=== PATIENT | female | born 1995 | race Two or more races ===

== ENCOUNTER 2022-12-18 08:15 | Observation (INO) | payer MEDICAID | END 2022-12-18 11:31 | disposition home or self-care (01) | LOC: LDRP 08:15 → UNDOADMOB 08:15 → LDRP 08:36 → UNDODISOB 11:31 | PROVIDERS: ADMIT Obstetrics & Gynecology; ATTEND Obstetrics & Gynecology | DX: O24.419 Gestational diabetes mellitus in pregnancy, unspecified control (principal); Z3A.32 32 weeks gestation of pregnancy | CPT/HCPCS: 59025; 76818; 81002; 82948; 82962; 94760; G0378 ==

== ENCOUNTER 2022-12-24 09:00 | Observation (INO) | payer MEDICAID ==
[2022-12-24] MEDS ORDERED: PREN-96 PO (11:08)
[2022-12-24] MEDS ORDERED: METF-370 PO (11:11)
== END 2022-12-24 11:20 | disposition home or self-care (01) ==
LOC: LDRP 09:00 → UNDOADMOB 09:00 → LDRP 09:10 → UNDODISOB 11:20
PROVIDERS: ADMIT Obstetrics & Gynecology; ATTEND Obstetrics & Gynecology
DX: O24.419 Gestational diabetes mellitus in pregnancy, unspecified control (principal); Z3A.33 33 weeks gestation of pregnancy
CPT/HCPCS: 59025; 76818; 81002; 82948; 82962; G0378

== ENCOUNTER 2022-12-27 09:04 | Observation (INO) | payer MEDICAID ==
[~2022-12-27 09:04] MED LIST: METF-370 PO; PREN-96 PO
== END 2022-12-27 10:40 | disposition home or self-care (01) ==
LOC: LDRP 09:04
PROVIDERS: ADMIT Obstetrics & Gynecology; ATTEND Obstetrics & Gynecology
DX: O24.419 Gestational diabetes mellitus in pregnancy, unspecified control (principal); Z3A.33 33 weeks gestation of pregnancy
CPT/HCPCS: 59025; 76818; 81002; 82962; 94760; G0378

== ENCOUNTER 2022-12-29 09:04 | Observation (INO) | payer MEDICAID ==
[~2022-12-29] VITALS: Ht 160 cm; Wt 118.8 kg
== END 2022-12-29 12:03 | disposition home or self-care (01) ==
LOC: LDRP 09:04
PROVIDERS: ADMIT Obstetrics & Gynecology; ATTEND Obstetrics & Gynecology
DX: O24.419 Gestational diabetes mellitus in pregnancy, unspecified control (principal); Z3A.33 33 weeks gestation of pregnancy
CPT/HCPCS: 59025; 76818; 81002; 82948; 82962; 94760; G0378

== ENCOUNTER 2023-01-01 08:56 | Observation (INO) | payer MEDICAID ==
[~2023-01-01] VITALS: Ht 160 cm; Wt 119.3 kg
== END 2023-01-01 10:11 | disposition home or self-care (01) ==
LOC: LDRP 08:56
PROVIDERS: ADMIT Obstetrics & Gynecology; ATTEND Obstetrics & Gynecology
DX: O24.419 Gestational diabetes mellitus in pregnancy, unspecified control (principal); Z3A.33 33 weeks gestation of pregnancy
CPT/HCPCS: 59025; 76818; 81002; 82948; 82962; 94760; G0378

== ENCOUNTER 2023-01-05 08:14 | Observation (INO) | payer MEDICAID | END 2023-01-05 09:40 | disposition home or self-care (01) | LOC: LDRP 08:14 | PROVIDERS: ADMIT Obstetrics & Gynecology; ATTEND Obstetrics & Gynecology | DX: O24.419 Gestational diabetes mellitus in pregnancy, unspecified control (principal); Z3A.34 34 weeks gestation of pregnancy | CPT/HCPCS: 59025; 76818; 81002; 82948; 82962; G0378 ==

== ENCOUNTER → 2023-01-07 | Outpatient (CLI) | payer MEDICAID ==
[2023-01-07 11:15] LABS: Basophils # (auto) 0 10 ^3/uL (0-0.2); Basophils % (auto) 0.1 % (0.0-2.0); Eosinophils # (auto) 0.1 10 ^3/uL (0-0.8); Eosinophils % (auto) 0.7 % (0.0-7.0); Hemoglobin 11.6 g/dL (12.2-16.2); Lymphocytes # (auto) 1.5 10 ^3/uL (0.4-5.4); Lymphocytes % (auto) 16.4 % (10.0-50.0); Mean Corpuscular Hemoglobin 27.1 pg (28.0-32.0); Mean Corpuscular Hgb Conc. 33.1 g/dL (32.0-36.0); Mean Corpuscular Volume 81.9 fL (80.0-100.0); Monocytes # (auto) 0.3 10 ^3/uL (0-1.3); Monocytes % (auto) 3.2 % (0.0-12.0); Neutrophils # (auto) 7.5 10 ^3/uL (1.6-8.6); Neutrophils % (auto) 79.6 % (37.0-80.0); Red Blood Cells 4.28 10^6/uL (4.0-5.20); Red Cell Distribution Width 14.9 % (11.8-14.3); White Blood Cell 9.5 10^3/uL (4.4-10.8)
[2023-01-08 07:06] LABS: RPR Non Reactive (Non Reactive)
== END | disposition home or self-care (01) ==
LOC: LAB 10:25
PROVIDERS: ATTEND Obstetrics & Gynecology
DX: Z34.80 Encounter for supervision of other normal pregnancy, unspecified trimester (principal); Z3A.00 Weeks of gestation of pregnancy not specified
CPT/HCPCS: 36415; 84112; 85025; 86592

== ENCOUNTER 2023-01-12 12:26 | Observation (INO) | payer MEDICAID | END 2023-01-12 14:30 | disposition home or self-care (01) | LOC: UNDOADMOB 12:26 → LDRP 12:26 → UNDODISOB 14:30 | PROVIDERS: ADMIT Obstetrics & Gynecology; ATTEND Obstetrics & Gynecology | DX: O24.419 Gestational diabetes mellitus in pregnancy, unspecified control (principal); Z3A.35 35 weeks gestation of pregnancy | CPT/HCPCS: 59025; 76818; 81002; 82962; G0378 ==

== ENCOUNTER 2023-01-15 08:10 | Observation (INO) | payer MEDICAID ==
[2023-01-15] MEDS ORDERED: METF-370 PO (08:39)
== END 2023-01-15 10:40 | disposition home or self-care (01) ==
LOC: LDRP 08:10 → UNDOADMOB 08:10 → LDRP 08:29 → UNDODISOB 10:40
PROVIDERS: ADMIT Obstetrics & Gynecology; ATTEND Obstetrics & Gynecology
DX: O24.419 Gestational diabetes mellitus in pregnancy, unspecified control (principal); Z3A.36 36 weeks gestation of pregnancy
CPT/HCPCS: 59025; 76818; 81002; 82948; 82962; 94760; G0378

== ENCOUNTER 2023-01-19 12:04 | Observation (INO) | payer MEDICAID | END 2023-01-19 14:10 | disposition home or self-care (01) | LOC: LDRP 12:04 | PROVIDERS: ADMIT Obstetrics & Gynecology; ATTEND Obstetrics & Gynecology | DX: O24.419 Gestational diabetes mellitus in pregnancy, unspecified control (principal); Z3A.36 36 weeks gestation of pregnancy | CPT/HCPCS: 59025; 76818; 81002; 82948; 82962; G0378 ==

== ENCOUNTER 2023-01-26 09:10 | Observation (INO) | payer MEDICAID | END 2023-01-26 10:23 | disposition home or self-care (01) | LOC: UNDOADMOB 09:10 → LDRP 09:10 → UNDODISOB 10:23 | PROVIDERS: ADMIT Obstetrics & Gynecology; ATTEND Obstetrics & Gynecology | DX: O24.419 Gestational diabetes mellitus in pregnancy, unspecified control (principal); Z3A.37 37 weeks gestation of pregnancy | CPT/HCPCS: 59025; 76818; 81002; 82948; 82962; 94760; G0378 ==

== ENCOUNTER 2023-01-29 08:49 | Observation (INO) | payer MEDICAID ==
[2023-01-29] MEDS ORDERED: CEPH250C PO (10:30)
== END 2023-01-29 10:44 | disposition home or self-care (01) ==
LOC: LDRP 09:14 → UNDOADMOB 09:14 → LDRP 09:18 → UNDODISOB 10:44
PROVIDERS: ADMIT Obstetrics & Gynecology; ATTEND Obstetrics & Gynecology
DX: O24.419 Gestational diabetes mellitus in pregnancy, unspecified control (principal); Z3A.38 38 weeks gestation of pregnancy
CPT/HCPCS: 59025; 76818; 81002; 82948; 82962; G0378

== ENCOUNTER 2023-02-02 08:50 | Observation (INO) | payer MEDICAID ==
[~2023-02-02 08:50] MED LIST changes: +CEPH250C PO
== END 2023-02-02 11:43 | disposition home or self-care (01) ==
LOC: LDRP 08:50 → UNDOADMOB 08:50 → LDRP 09:02
PROVIDERS: ADMIT Obstetrics & Gynecology; ATTEND Obstetrics & Gynecology
DX: O24.415 Gestational diabetes mellitus in pregnancy, controlled by oral hypoglycemic drugs (principal); Z3A.38 38 weeks gestation of pregnancy; Z79.84 Long term (current) use of oral hypoglycemic drugs
CPT/HCPCS: 59025; 76818; 81002; 82948; 82962; G0378

== ENCOUNTER 2023-02-09 08:16 | Observation (INO) | payer MEDICAID | END 2023-02-09 10:27 | disposition home or self-care (01) | LOC: LDRP 08:29 → UNDOADMOB 08:29 → LDRP 08:36 → UNDODISOB 10:27 | PROVIDERS: ADMIT Obstetrics & Gynecology; ATTEND Obstetrics & Gynecology | DX: O24.419 Gestational diabetes mellitus in pregnancy, unspecified control (principal); Z3A.39 39 weeks gestation of pregnancy | CPT/HCPCS: 59025; 76818; 81002; 82948; 82962; G0378 ==

== ENCOUNTER 2023-02-10 12:57 | Inpatient (IN) | payer MEDICAID ==
[~2023-02-10] VITALS: Ht 160 cm; Wt 120.7 kg
[2023-02-10] MEDS ORDERED: LIDOCAINE 2%HCL (LOCAL ANESTH.) INJ 20ML MDV IJ PRN ×2 (13:30→15:00)
[2023-02-10] MEDS ORDERED: PROMETHAZINE HCL 25 MG/ML 1ML IV PRN (13:30)
[2023-02-10] MEDS ORDERED: PENICILLIN G POT 5MIL/D5 50ML 50 ML IV ONE (13:30)
[2023-02-10] MEDS ORDERED: PHISODERM TOP SOLN 240ML BTL TOP PRN (13:30)
[2023-02-10] MEDS: LACTATED RINGER'S 1,000 ML IV SCH ×2 (14:02→18:41)
[2023-02-10 14:50] LABS: Basophils # (auto) 0 10 ^3/uL (0-0.2); Basophils % (auto) 0.2 % (0.0-2.0); Eosinophils # (auto) 0.1 10 ^3/uL (0-0.8); Eosinophils % (auto) 0.6 % (0.0-7.0); Hematocrit 35.8 % (36.0-46.0); Hemoglobin 11.9 g/dL (12.2-16.2); Lymphocytes # (auto) 1.5 10 ^3/uL (0.4-5.4); Lymphocytes % (auto) 15.4 % (10.0-50.0); Mean Corpuscular Hgb Conc. 33.2 g/dL (32.0-36.0); Mean Corpuscular Volume 81.5 fL (80.0-100.0); Monocytes # (auto) 0.3 10 ^3/uL (0-1.3); Monocytes % (auto) 3.1 % (0.0-12.0); Neutrophils # (auto) 8.1 10 ^3/uL (1.6-8.6); Neutrophils % (auto) 80.7 % (37.0-80.0); Nucleated Red Blood Cells % 0.2 %; Red Blood Cells 4.39 10^6/uL (4.0-5.20); Red Cell Distribution Width 14.8 % (11.8-14.3)
[2023-02-10 14:52] LABS: Alanine Aminotransferase 60 U/L (7-40); Albumin 3.6 g/dL (3.2-4.8); Alkaline Phosphatase 275 U/L (46-116); Anion Gap 8.2 (5-15); Aspartate Aminotransferase 23 U/L (13-40); Blood Urea Nitrogen 13 mg/dL (9-23); Calcium 9.3 mg/dL (8.5-10.1); Carbon Dioxide 21.8 mmol/L (20-30); Chloride 108 mmol/L (98-107); Glucose 95 mg/dL (74-106); Potassium 4.2 mmol/L (3.5-5.1); Sodium 138 mmol/L (136-145)
[2023-02-10] MEDS: DERMOPLAST 60ML BOTTLE TOP PRN (14:52)
[2023-02-10] MEDS: WITCH HAZEL-GLYCERIN PAD TOP PRN (14:52)
[2023-02-10 14:53] LABS: Bilirubin, Total 0.4 mg/dL (0.2-1.0); Total Protein 5.8 g/dL (5.7-8.2)
[2023-02-10] MEDS: miSOPROStol 50 MCG per PRE-CUT 1/2 TAB PO PRN ×2 (15:08→20:36)
[2023-02-10 15:09] LABS: Amphetamine Screen, Urine Neg (NEGATIVE)
[2023-02-10 15:10] LABS: Benzodiazephine Screen, Urine Neg (NEGATIVE)
[2023-02-10 15:11] LABS: Barbiturate Scree,Urine Neg (NEGATIVE); Cannabinoid Screen, Urine Neg (NEGATIVE); Cocaine Screen, Urine Neg (NEGATIVE); Opiate Scree,Urine Neg (NEGATIVE); Phencyclidine Screen, Urine Neg (NEGATIVE)
[2023-02-10 15:16] LABS: Urine Bacteria FEW /hpf (None Seen); Urine Blood Negative /uL (Negative); Urine Clarity Clear (Clear); Urine Color Yellow (Yellow); Urine Mucus FEW (None Seen); Urine Protein, UAD Negative (Negative); Urine Specific Gravity 1.017 (1.001-1.035); Urine Urobilinogen Normal (Negative); Urine WBC 2 /hpf (0 - 5)
[2023-02-10 15:47] LABS: INR 0.9 (0.9-1.15); Partial Thromboplastin Time 29.5 SEC (24.5-34.5); Prothrombin Time 9.5 sec (9.3-11.8)
[2023-02-10] MEDS ORDERED: ACETAMINOPHEN 500 MG TAB PO PRN (17:00)
[2023-02-10] MEDS ORDERED: ONDANSETRON HCL 4 MG/2 ML VIAL IV PRN ×2 (17:00→17:30)
[2023-02-10] MEDS ORDERED: MINERAL OIL TOPICAL 10ml TOP PRN (17:00)
[2023-02-10] MEDS ORDERED: diphenhdrAMINE HCL 50 MG/1 ML VL IV PRN (17:00)
[2023-02-10] MEDS ORDERED: TERBUTALINE SULFATE 1 MG/ML 1ML VIAL SC PRN (17:00)
[2023-02-10] MEDS ORDERED: TRANEXAMIC ACID 1,000 MG in SODIUM CHL 0.9% 100 ML IV PRN (17:00)
[2023-02-10] MEDS ORDERED: miSOPROStol 100 mcg TAB SL PRN ×2 (17:00→17:30)
[2023-02-10] MEDS ORDERED: LACT. RINGERS/OXYTOCIN 20UNITS 500 ML IV ONE ×4 (17:00→18:00)
[2023-02-10] MEDS ORDERED: CARBOPROST TROMETHAMINE 250 MCG/1ML VIAL IM PRN ×2 (17:00→17:30)
[2023-02-10] MEDS ORDERED: METHYLERGONOVINE MALEATE 0.2 MG/ML AMP IM PRN ×2 (17:00→17:30)
[2023-02-10] MEDS ORDERED: PROMETHAZINE HCL 25 MG/ML 1ML IM PRN (17:00)
[2023-02-10] MEDS ORDERED: fentaNYL CITRATE 100 MCG/2 ML VL IV PRN (17:00)
[2023-02-10] MEDS ORDERED: miSOPROStol 100 mcg TAB PR PRN (17:30)
[2023-02-10] MEDS ORDERED: DIPHENOXYLATE W/ATROPINE 2.5 MG TAB PO SCH ×2 (18:00→22:00)
[2023-02-10] MEDS: ACCU-CHEK COMFORT CURVE STRIP VI SCH ×2 (18:40→22:17)
[2023-02-10] MEDS: URSODIOL 300 MG CAP PO SCH (22:16)
[2023-02-11] MEDS: LACTATED RINGER'S 1,000 ML IV SCH (02:27)
[2023-02-11] MEDS: D5W/LACTATED RINGERS 1,000 ML IV SCH ×2 (03:04→13:10)
[2023-02-11] MEDS ORDERED: LACT. RINGERS/OXYTOCIN 20UNITS 1,000 ML IV SCH (05:15)
[2023-02-11] MEDS ORDERED: TERBUTALINE SULFATE 1 MG/ML 1ML VIAL SC PRN (05:15)
[2023-02-11 06:07] LABS: RPR Non Reactive (Non Reactive)
[2023-02-11] MEDS: URSODIOL 300 MG CAP PO SCH ×2 (06:21→14:17)
[2023-02-11] MEDS: PENICILLIN G POTASSIUM 2,500,000 UNITS in D5W 5% 50 ML IV SCH ×2 (08:15→14:17)
[2023-02-11] MEDS ORDERED: IBUPROFEN 600 MG TAB PO PRN (18:45)
[2023-02-11] MEDS ORDERED: ACETAMINOPHEN 325 MG TAB PO PRN (18:45)
[2023-02-11 19:00] VITALS: BP 128/65; PULSE 88; PULSE 91; RESP 18; TEMP 98.4; O2SAT 98
[2023-02-11] MEDS ORDERED: DOCUSATE SOD 100 MG CAP PO SCH (22:00)
[2023-02-11 23:10] VITALS: BP 113/53; PULSE 77; RESP 18; TEMP 98.4; O2SAT 98
[2023-02-12 02:45] VITALS: BP 109/58; PULSE 72; RESP 18; TEMP 98.1; O2SAT 96
[2023-02-12 07:00] VITALS: BP 101/67; PULSE 75; RESP 20; TEMP 98.1; O2SAT 98
[2023-02-12 07:34] LABS: Basophils # (auto) 0 10 ^3/uL (0-0.2); Basophils % (auto) 0.2 % (0.0-2.0); Eosinophils # (auto) 0 10 ^3/uL (0-0.8); Eosinophils % (auto) 0.2 % (0.0-7.0); Hemoglobin 10.8 g/dL (12.2-16.2); Monocytes # (auto) 0.5 10 ^3/uL (0-1.3); Red Cell Distribution Width 14.7 % (11.8-14.3)
[2023-02-12 07:35] LABS: Hematocrit 33.3 % (36.0-46.0); Lymphocytes # (auto) 2.1 10 ^3/uL (0.4-5.4); Lymphocytes % (auto) 15.4 % (10.0-50.0); Mean Corpuscular Hemoglobin 26.3 pg (28.0-32.0); Mean Corpuscular Hgb Conc. 32.4 g/dL (32.0-36.0); Mean Corpuscular Volume 81.3 fL (80.0-100.0); Monocytes % (auto) 3.6 % (0.0-12.0); Neutrophils # (auto) 10.8 10 ^3/uL (1.6-8.6); Neutrophils % (auto) 80.6 % (37.0-80.0); Nucleated Red Blood Cells % 0.3 %; Red Blood Cells 4.09 10^6/uL (4.0-5.20); White Blood Cell 13.4 10^3/uL (4.4-10.8)
[2023-02-12] MEDS: WITCH HAZEL-GLYCERIN PAD TOP PRN (08:40)
[2023-02-12] MEDS: DERMOPLAST 60ML BOTTLE TOP PRN (08:40)
[2023-02-12] MEDS ORDERED: FER325T PO (10:06)
[2023-02-12] MEDS ORDERED: IBU600T PO (10:06)
[2023-02-12] MEDS ORDERED: ASCO500T11 PO (10:06)
[2023-02-12] MEDS ORDERED: ACET-1882 PO (10:06)
[2023-02-12] MEDS ORDERED: DOCU-265 PO (10:06)
[2023-02-12 11:00] VITALS: BP 111/69; PULSE 75; RESP 17; TEMP 98; O2SAT 98
[2023-02-12 15:00] VITALS: BP 107/65; PULSE 75; RESP 19; TEMP 98.2; O2SAT 98
[2023-02-13 19:06] LABS: Treponema pallidum Ab (FTA-Ab) Non Reactive (Non Reactive)
== END 2023-02-12 17:25 | disposition home or self-care (01) | DRG 560 ==
LOC: LDRP 12:57
PROVIDERS: ADMIT Obstetrics & Gynecology; ATTEND Obstetrics & Gynecology
PROC: 10E0XZZ Delivery of Products of Conception, External Approach (ICD-10-PCS; principal; 2023-02-11)
PROC: 0KQM0ZZ Repair Perineum Muscle, Open Approach (ICD-10-PCS; 2023-02-11)
DX: O24.429 Gestational diabetes mellitus in childbirth, unspecified control (principal); Z37.0 Single live birth; K83.1 Obstruction of bile duct; O26.62 Liver and biliary tract disorders in childbirth; R71.0 Precipitous drop in hematocrit; O48.0 Post-term pregnancy; Z3A.40 40 weeks gestation of pregnancy; O99.824 Streptococcus B carrier state complicating childbirth; O69.81X0 Labor and delivery complicated by cord around neck, without compression, not applicable or unspecified; O70.1 Second degree perineal laceration during delivery
CPT/HCPCS: 36415; 59025; 59200; 59409; 80053; 80307; 81001; 81002; 82948; 82962; 85025; 85610; 85730; 86592; 86850; 86900; 86901; 94760; 94762; 96360; 96361; 96365; 96366; G0378; J2540; J2590; J7060